=== PATIENT | male | born 1970 | race Caucasian/White ===

== ENCOUNTER 2023-07-28 08:10 | Day surgery (SDC) | payer BC ==
[~2023-07-28 08:10] MED LIST: Acetaminophen 500 MG Tab PO ONE
[2023-07-28 08:55] LABS: ALANINE AMINOTRANSFERASE,ALT 29 U/L (12-78); ALBUMIN 3.8 g/dL (3.4-5.0); ALKALINE PHOSPHATASE 63 U/L (46-116); ANION GAP 9.5 mmol/L (5.0-14.0); ASPARTATE AMNIOTRANSFERASE,AST 18 U/L (15-37); BILIRUBIN TOTAL 0.5 mg/dL (0.2-1.0); BLOOD UREA NITROGEN,BUN 16 mg/dL (7-18); CALCIUM 8.7 mg/dL (8.5-10.1); CARBON DIOXIDE,CO2 29 mmol/L (21-32); CHLORIDE,CL 104 mmol/L (100-108); CREATININE 1.1 mg/dL (0.8-1.3); EST CRCL DRUG DOSING (CG) 75.88 mL/min; ESTIMATED GFR 79 mL/min (>60); GLUCOSE RANDOM 105 mg/dL (74-106); POTASSIUM,K 4.1 mmol/L (3.6-5.2); PROTEIN TOTAL,TP 7.5 g/dL (6.4-8.2); SODIUM,NA 142 mmol/L (140-148)
[2023-07-28] MEDS: Acetaminophen 500 MG Tab PO ONE (08:55)
[2023-07-28] MEDS: Lactated Ringers 1,000 ML IV SCH (09:07)
[2023-07-28] MEDS ORDERED: fentaNYL 250 MCG/5 ML SDV ONE (10:25)
[2023-07-28] MEDS ORDERED: Ondansetron 4 MG/2 ML SDV ONE (10:26)
[2023-07-28] MEDS ORDERED: Rocuronium 50 MG/5 ML Vial ONE ×2 (10:26→13:53)
[2023-07-28] MEDS ORDERED: Glycopyrrolate 0.2 MG/ML 5 ML MDV ONE (10:26)
[2023-07-28] MEDS ORDERED: Neostigmine Methylsulfate 10 MG/10 ML MDV ONE (10:26)
[2023-07-28] MEDS ORDERED: Succinylcholine 200 MG/10 ML MDV ONE (10:26)
[2023-07-28] MEDS ORDERED: Dexamethasone 4 MG/ML SDV ONE (10:26)
[2023-07-28] MEDS ORDERED: Propofol 200 MG/20 ML SDV ONE (10:26)
[2023-07-28] MEDS: ceFAZolin 2 GM in Premix Bag 1 BAG IV ONE (12:38)
[2023-07-28] MEDS: Bupivacaine 0.5%/EPINEPHrine 1:200,000 50 ML MDV ONE (13:42)
[2023-07-28] MEDS ORDERED: Lactated Ringers 1,000 ML ONE (14:02)
[2023-07-28] MEDS ORDERED: fentaNYL 100 MCG/2 ML SDV ONE (14:59)
[2023-07-28] MEDS: Acetaminophen/HYDROcodone 325-5 MG Tab PO PRN (17:09)
== END 2023-07-28 20:00 | disposition home or self-care (01) ==
LOC: JP.SDS 08:10
PROVIDERS: ATTEND Student in an Organized Health Care Education/Training Program
DX: K40.90 Unilateral inguinal hernia, without obstruction or gangrene, not specified as recurrent (principal); K42.9 Umbilical hernia without obstruction or gangrene; F17.210 Nicotine dependence, cigarettes, uncomplicated; F41.9 Anxiety disorder, unspecified
CPT/HCPCS: 36415; 80053; 93005; 93010; A9270-GY; C1781; J0330; J0690; J1100; J2405; J2704; J2710; J3010; J3490; J7120